=== PATIENT | male | born 1950 | race Two or more races ===

== ENCOUNTER 2022-01-03 18:30 | Emergency (ER) | payer OTHER ==
[~2022-01-03] VITALS: Ht 177.8 cm; Wt 81.6 kg
[2022-01-03 18:40] VITALS: BP_SYST 135
--- NOTE | 2022-01-03 19:26 | NUR ---
Patient to ER bed 6 to gown for evaluation. Side rails up. Report given to Hema Vallejo(derian).
--- NOTE | 2022-01-03 19:40 | NUR ---
Received report from ALANNAH Garrido; assuming care of patient at this time.
--- NOTE | 2022-01-03 19:45 | NUR ---
NATE Mtz at bedside.
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
[2022-01-03] MEDS ORDERED: ACETAMINOPHEN 500 MG TABLET PO ONE (20:00)
[2022-01-03] MEDS ORDERED: KETOROLAC TROMETHAMINE 30 MG VIAL IM ONE (20:00)
[2022-01-03] MEDS ORDERED: LIDOCAINE PATCH 5% 1 EA TP ONE (20:00)
--- NOTE | 2022-01-03 20:06 | NUR ---
Patient ambulatory to xray; accompained by radiology.
--- NOTE | 2022-01-03 21:03 | NUR ---
urine sample given from patient and taken to lab
--- NOTE | 2022-01-03 21:24 | NUR ---
Patient sitting upright in chair with sitting at bedside. Patient states "I feel more comfortable sitting in the chair instead of lying in bed." Nad noted at this time.
[2022-01-03 21:46] LABS: BARBITURATE, URINE NEGATIVE (NEG <=200); BENZODIAZEPINE, URINE NEGATIVE (NEG <=150); CANNABINOID, URINE NEGATIVE (NEG <=50); COCAINE, URINE NEGATIVE (NEG <=150); METHAMPHETAMINES SCREEN,URINE NEGATIVE (NEG <=500); OPIATE, URINE NEGATIVE (NEG <=100); PHENCYCLIDINE SCREEN,URINE NEGATIVE (NEG <=25); UR TRICYCLIC ANTIDEPRESSANTS NEGATIVE (NEG <=300); URINE AMPHETAMINE NEGATIVE (NEG <=500); URINE METHADONE NEGATIVE (NEG <=200); URINE OXYCODONE SCREEN NEGATIVE (NEG <=100); URINE PROPOXYPHENE SCREEN NEGATIVE (NEG <=300)
[2022-01-03] MEDS ORDERED: IBUP-1969 PO (22:02)
[2022-01-03] MEDS ORDERED: METH-634 PO (22:02)
[2022-01-03] MEDS ORDERED: LIDOINT TP (22:02)
[2022-01-03] MEDS ORDERED: ACET-2634 PO (22:02)
[2022-01-03 22:08] VITALS: BP_SYST 145
--- NOTE | 2022-01-03 22:08 | NUR ---
Patient given written and verbal discharge instructions and verbalizes understanding. ER MD discussed with patient the results and treatment provided. Patient in stable condition. ID arm band removed. Rx of Extra strength Acetaminophen, Ibuprofen, Lidocaine HCL, and Methocarbamol given. Patient educated on pain management and to follow up with PMD. Pain Scale 3/10. Opportunity for questions provided and answered. Medication side effect fact sheet provided. Patient accompanied by and in stable condition upon discharge.
== END 2022-01-03 22:08 | disposition home or self-care (01) ==
LOC: SED 18:30
DX: S29.012A Strain of muscle and tendon of back wall of thorax, initial encounter (principal); M54.6 Pain in thoracic spine; Z79.899 Other long term (current) drug therapy; V49.40XA Driver injured in collision with unspecified motor vehicles in traffic accident, initial encounter; Y93.89 Activity, other specified; Y92.89 Other specified places as the place of occurrence of the external cause; Y99.8 Other external cause status
CPT/HCPCS: 99284; 71046; 80307; 72072; 96372; J1885